=== PATIENT | female | born 1940 | race African-American/Black ===

== ENCOUNTER 2017-10-04 09:14 | Emergency (ER) | payer MEDICARE, MEDICAID ==
[~2017-10-04] VITALS: Ht 152.4 cm; Wt 63.0 kg
[2017-10-04] MEDS ORDERED: KETOROLAC 60MG/2ML VIAL IM ONE (11:00)
[2017-10-04] MEDS ORDERED: HYDROCODONE/ACETAMINOPHEN 5/325MG TABLET PO ONE (11:00)
[2017-10-04] MEDS ORDERED: ONDANSETRON 4MG ODT PO ONE (11:00)
[2017-10-04 11:42] LABS: CHLORIDE 105 mEq/L (98-107)
[2017-10-04 12:46] VITALS: BP 137/68
== END 2017-10-04 12:51 | disposition home or self-care (01) ==
LOC: ER 09:32
DX: M10.9 Gout, unspecified (principal); M79.671 Pain in right foot; M19.90 Unspecified osteoarthritis, unspecified site; I10 Essential (primary) hypertension
CPT/HCPCS: 36415; 73630; 80048; 84550; 96372; 99285; J1885; Q0162